=== PATIENT | male | born 2000 | race Caucasian/White ===

== ENCOUNTER 2023-02-14 21:01 | Inpatient (IN) | payer OTHER ==
[~2023-02-14] VITALS: Ht 175.3 cm; Wt 63.5 kg
[2023-02-14] MEDS ORDERED: MED REC IN PROGRESS XX SCH (22:20)
[2023-02-14 22:37] LABS: HEMATOCRIT 41.8 % (42.0-52.0); HEMOGLOBIN 14.5 g/dl (13.5-17.5); MEAN CORPUSCULAR HEMOGLOBIN 30.3 pg (27.0-33.0); MEAN CORPUSCULAR HGB CONC 34.7 g/dl (32.0-36.5); MEAN CORPUSCULAR VOLUME 87.4 fl (80.0-96.0); PLATELET COUNT, AUTOMATED 354 10^3/uL (150-450); RED BLOOD COUNT 4.78 10^6/uL (4.30-6.10); WHITE BLOOD COUNT 10.3 10^3/uL (4.0-10.0)
[2023-02-14 23:02] LABS: AMPHETAMINES LEVEL URINE NEGATIVE (NEGATIVE); BARBITURATES URINE NEGATIVE (NEGATIVE); COCAINE METABOLITE URINE NEGATIVE (NEGATIVE)
[2023-02-14 23:03] LABS: BENZODIAZEPINES URINE NEGATIVE (NEGATIVE); CANNABINOIDS URINE NEGATIVE (NEGATIVE); METHADONE URINE NEGATIVE (NEGATIVE); OPIATES URINE NEGATIVE (NEGATIVE); PHENCYCLIDINE URINE NEGATIVE (NEGATIVE)
[2023-02-14 23:05] LABS: ETHYL ALCOHOL (ETHANOL) 0.278 % (0.000-0.010)
[2023-02-14 23:07] LABS: ALBUMIN 4.8 G/DL (3.2-5.2); ALKALINE PHOSPHATASE 115 U/L (46-116); ALT/SGPT 17 U/L (7.0-40); AST/SGOT 12 U/L (<34); BILIRUBIN,DIRECT 0.2 MG/DL (<0.4); BILIRUBIN,TOTAL 0.5 MG/DL (0.3-1.2); BLOOD UREA NITROGEN 9 MG/DL (9-23); CALCIUM LEVEL 9.6 MG/DL (8.5-10.1); CARBON DIOXIDE LEVEL 27 MMOL/L (20-31); CHLORIDE LEVEL 103 MMOL/L (98-107); CREATININE FOR GFR 0.88 MG/DL (0.70-1.30); GLOMERULAR FILTRATION RATE > 60.0 (>60); GLUCOSE, FASTING 87 MG/DL (60-100); POTASSIUM SERUM 4.4 MMOL/L (3.5-5.1); SALICYLATE LEVEL < 3.0 MG/DL (<30); SODIUM LEVEL 140 MMOL/L (136-145)
[2023-02-14 23:13] LABS: THYROID STIMULATING HORMONE 1.402 uIU/ML (0.55-4.78)
[2023-02-15] MEDS ORDERED: HOME MED LIST COMPLETE! XX SCH (12:25)
[2023-02-15] MEDS ORDERED: MAALOX 30 ML SUSP *UDC PO PRN (15:00)
[2023-02-15] MEDS ORDERED: IBUPROFEN 400MG TAB PO PRN (15:00)
[2023-02-15] MEDS ORDERED: MOM 30ML SUSPENSION UDC PO PRN (15:00)
[2023-02-15] MEDS ORDERED: traZODone 50 MG TAB PO PRN (15:00)
[2023-02-15] MEDS ORDERED: ACETAMINOPHEN TAB 650MG DOSE (2X325MG) PO PRN (15:00)
[2023-02-15] MEDS ORDERED: LORazepam 2 MG TAB PO PRN (15:00)
[2023-02-15] MEDS ORDERED: diphenhydrAMINE 25MG CAP PO PRN (15:00)
[2023-02-15] MEDS: FOLIC ACID 1MG TAB PO SCH (15:21)
[2023-02-15] MEDS: THIAMINE 100 MG TAB PO SCH ×2 (15:22→21:34)
[2023-02-15] MEDS: MULTIVITAMINS/MINERALS THERAP 1 TAB PO SCH (15:22)
[2023-02-15 21:02] VITALS: BP 113/70; TEMP 97.6; O2SAT 100
[2023-02-15 21:05] VITALS: BP 113/70
[2023-02-16 06:00] VITALS: BP 107/55
[2023-02-16 06:27] VITALS: BP 107/55; TEMP 98.2; O2SAT 99
[2023-02-16] MEDS: FOLIC ACID 1MG TAB PO SCH (09:45)
[2023-02-16] MEDS: MULTIVITAMINS/MINERALS THERAP 1 TAB PO SCH (09:45)
[2023-02-16] MEDS: THIAMINE 100 MG TAB PO SCH ×2 (09:45→20:18)
[2023-02-16] MEDS ORDERED: NICOTINE 21MG/24HR 1 EA TRANSDERMAL TD PRN (11:00)
[2023-02-16 14:00] VITALS: BP 118/59
[2023-02-16 18:00] VITALS: BP 127/60; TEMP 98.5; O2SAT 100
[2023-02-16 22:00] VITALS: BP 132/86
[2023-02-17 06:00] VITALS: BP 126/60; TEMP 97.9; O2SAT 99
[2023-02-17] MEDS: MULTIVITAMINS/MINERALS THERAP 1 TAB PO SCH (09:22)
[2023-02-17] MEDS: THIAMINE 100 MG TAB PO SCH (09:22)
[2023-02-17] MEDS: FOLIC ACID 1MG TAB PO SCH (09:22)
[2023-02-17 19:22] VITALS: BP 120/59; TEMP 98.7; O2SAT 98
[2023-02-18 05:54] VITALS: BP 106/55; TEMP 97.8; O2SAT 96
[2023-02-18 18:20] VITALS: BP 116/61; TEMP 98.8; O2SAT 98
[2023-02-19 06:35] VITALS: BP 130/65; TEMP 97.9; O2SAT 99
== END 2023-02-19 12:00 | disposition home or self-care (01) | DRG 882 ==
LOC: M ED 21:01 → M ED INP 02-15 14:58 → M PSY 02-15 20:44
PROVIDERS: ADMIT Student in an Organized Health Care Education/Training Program; ATTEND Student in an Organized Health Care Education/Training Program
DX: F43.25 Adjustment disorder with mixed disturbance of emotions and conduct (principal); R45.851 Suicidal ideations; F32.A Depression, unspecified; F10.929 Alcohol use, unspecified with intoxication, unspecified; D72.829 Elevated white blood cell count, unspecified